=== PATIENT | male | born 1950 | race Caucasian/White ===

== ENCOUNTER 2021-06-11 13:10 | Emergency (ER) | payer MEDICARE ==
[2021-06-11 13:45] LABS: HEMOGLOBIN 13.8 gm/dl (14.0-17.5); RED BLOOD COUNT 4.42 M/UL (4.20-5.50); WHITE BLOOD COUNT 8.1 K/UL (4.5-11.0)
[2021-06-11] MEDS ORDERED: LOMOTIL 2.5-0.1 EACH PO ×2 (18:29→18:39)
[2021-06-11] MEDS ORDERED: ZOFRAN ODT 4 MG4 MG PO (18:31)
== END 2021-06-11 18:54 | disposition home or self-care (01) ==
LOC: ER1 13:10
PROVIDERS: Physician Assistant
DX: E11.649 Type 2 diabetes mellitus with hypoglycemia without coma (principal); R19.7 Diarrhea, unspecified
CPT/HCPCS: 80053; 82962; 85025; 96374; 99284; J2405